=== PATIENT | male | born 1955 | race Caucasian/White ===

== ENCOUNTER → 2017-07-16 08:36 | Outpatient (CLI) | payer BC, SELFPAY ==
[2017-07-16 10:50] LABS: Hemoglobin A1c 7.9 % (4.2-6.3)
[2017-07-16 11:03] LABS: ALB/GLOB Ratio 1.1 RATIO (0.9-2.4); AST(SGOT) 18 U/L (15-37); Alanine Aminotransfer ALT/SGPT 36 U/L (16-61); Albumin, Serum 3.5 g/dL (3.2-5.0); Alkaline Phosphatase 82 U/L (45-117); Anion Gap 10 (5-15); BUN 15 mg/dL (7-18); BUN/Creat Ratio 14.6 RATIO (10-20); Calcium,Total 8.3 mg/dL (8.5-10.1); Chloride 103 mmol/L (98-107); Cholesterol 153 mg/dL (200); Creatinine, Serum 1.03 mg/dL (0.70-1.30); EST Glomerular Filtration Rate 78 mL/min (>60); Est Glom Filt Rate - Afr Amer 94 mL/min (>60); Globulin 3.2 g/dL (2.2-4.2); Glucose 140 mg/dL (74-106); High Density Lipoprotein 45 mg/dL; Potassium 4.6 mmol/L (3.5-5.1); Protein, Total 6.7 g/dL (6.4-8.2); Sodium Level 136 mmol/L (136-145); Thyroid Stim Hormone (TSH) 1.17 uIU/mL (0.358-3.74); Triglycerides 97 mg/dL; Very Low Density Lipoprotein 19 mg/dL (5-40)
== END ==
PROVIDERS: Family Provider Family Medicine; PCP Family Medicine; Visit Provider Family Medicine
DX: E11.9 Type 2 diabetes mellitus without complications (principal); E78.00 Pure hypercholesterolemia, unspecified
CPT/HCPCS: 36415; 80053; 80061; 83036; 84443

== ENCOUNTER → 2018-01-05 07:04 | Outpatient (CLI) | payer BC, SELFPAY ==
[2018-01-05 08:26] LABS: AST(SGOT) 16 U/L (15-37); Alanine Aminotransfer ALT/SGPT 39 U/L (16-61); Albumin, Serum 3.4 g/dL (3.2-5.0); Alkaline Phosphatase 87 U/L (45-117); Anion Gap 6 (5-15); BUN 14 mg/dL (7-18); BUN/Creat Ratio 14.6 RATIO (10-20); Calcium,Total 8.5 mg/dL (8.5-10.1); Chloride 106 mmol/L (98-107); Cholesterol 164 mg/dL (200); Creatinine, Serum 0.96 mg/dL (0.70-1.30); EST Glomerular Filtration Rate 84 mL/min (>60); Est Glom Filt Rate - Afr Amer 101 mL/min (>60); Globulin 3.3 g/dL (2.2-4.2); Glucose 177 mg/dL (74-106); High Density Lipoprotein 47 mg/dL; Potassium 4.7 mmol/L (3.5-5.1); Protein, Total 6.7 g/dL (6.4-8.2); Sodium Level 140 mmol/L (136-145); Triglycerides 95 mg/dL; Very Low Density Lipoprotein 19 mg/dL (5-40)
== END ==
PROVIDERS: Family Provider Family Medicine; PCP Family Medicine; Referring Provider Family Medicine; Visit Provider Family Medicine
DX: E11.9 Type 2 diabetes mellitus without complications (principal)
CPT/HCPCS: 36415; 80053; 80061

== ENCOUNTER → 2018-08-12 | Outpatient (CLI) | payer BC, SELFPAY ==
[2018-08-12 11:08] LABS: ALB/GLOB Ratio 1.2 RATIO (0.9-2.4); AST(SGOT) 21 U/L (15-37); Alanine Aminotransfer ALT/SGPT 35 U/L (16-61); Albumin, Serum 3.5 g/dL (3.2-5.0); Alkaline Phosphatase 96 U/L (45-117); Anion Gap 12 (5-15); BUN 10 mg/dL (7-18); BUN/Creat Ratio 10.1 RATIO (10-20); Calcium,Total 8.7 mg/dL (8.5-10.1); Chloride 104 mmol/L (98-107); Cholesterol 133 mg/dL (200); Creatinine, Serum 0.99 mg/dL (0.70-1.30); EST Glomerular Filtration Rate 81 mL/min (>60); Est Glom Filt Rate - Afr Amer 98 mL/min (>60); Glucose 147 mg/dL (74-106); High Density Lipoprotein 48 mg/dL; Protein, Total 6.5 g/dL (6.4-8.2); Sodium Level 139 mmol/L (136-145); Thyroid Stim Hormone (TSH) 1.01 uIU/mL (0.358-3.74); Triglycerides 71 mg/dL; Very Low Density Lipoprotein 14 mg/dL (5-40)
== END | disposition home or self-care (01) ==
LOC: MFPLAB 08:55
PROVIDERS: Family Provider Family Medicine; PCP Family Medicine; Referring Provider Family Medicine; Visit Provider Family Medicine
DX: E11.9 Type 2 diabetes mellitus without complications (principal)
CPT/HCPCS: 36415; 80053; 80061; 84403; 84443

== ENCOUNTER → 2019-09-01 10:28 | Outpatient (CLI) | payer MEDICARE, SELFPAY ==
[2016-08-18 07:27] VITALS: BMI 28.7
[2019-09-01 13:21] LABS: Vitamin D,25 Hydroxy 68.9 ng/mL
[2019-09-01 13:39] LABS: ALB/GLOB Ratio 1.1 RATIO (0.9-2.4); AST(SGOT) 19 U/L (15-37); Alanine Aminotransfer ALT/SGPT 31 U/L (16-61); Albumin, Serum 3.6 g/dL (3.2-5.0); Alkaline Phosphatase 75 U/L (45-117); Anion Gap 8 (5-15); BUN 17 mg/dL (7-18); BUN/Creat Ratio 15.5 RATIO (10-20); Calcium,Total 8.8 mg/dL (8.5-10.1); Chloride 98 mmol/L (98-107); EST Glomerular Filtration Rate 71 mL/min (>60); Est Glom Filt Rate - Afr Amer 86 mL/min (>60); Globulin 3.3 g/dL (2.2-4.2); Glucose 139 mg/dL (74-106); PSA,Total - Annual Screen 2.07 ng/mL (0.00-4.00); Potassium 4.7 mmol/L (3.5-5.1); Protein, Total 6.9 g/dL (6.4-8.2); Sodium Level 133 mmol/L (136-145)
== END ==
PROVIDERS: PCP Family Medicine; Visit Provider Family Medicine
DX: E11.9 Type 2 diabetes mellitus without complications (principal); E55.9 Vitamin D deficiency, unspecified; Z12.5 Encounter for screening for malignant neoplasm of prostate
CPT/HCPCS: 36415; 80053; 82306; 84153; G0103

== ENCOUNTER → 2020-12-13 09:45 | Outpatient (CLI) | payer OTHER, SELFPAY ==
[2020-12-13 13:01] LABS: AST(SGOT) 22 U/L (15-37); Alanine Aminotransfer ALT/SGPT 33 U/L (16-61); Albumin, Serum 3.5 g/dL (3.2-5.0); Alkaline Phosphatase 69 U/L (45-117); Anion Gap 10 (5-15); BUN 8 mg/dL (7-18); BUN/Creat Ratio 8.4 RATIO (10-20); Calcium,Total 8.6 mg/dL (8.5-10.1); Chloride 105 mmol/L (98-107); Creatinine, Serum 0.96 mg/dL (0.70-1.30); EST Glomerular Filtration Rate 83 mL/min (>60); Est Glom Filt Rate - Afr Amer 101 mL/min (>60); Globulin 3.4 g/dL (2.2-4.2); Glucose 127 mg/dL (74-106); PSA,Total - Annual Screen 2.02 ng/mL (0.00-4.00); Potassium 4.6 mmol/L (3.5-5.1); Protein, Total 6.9 g/dL (6.4-8.2); Sodium Level 140 mmol/L (136-145); Thyroid Stim Hormone (TSH) 0.91 uIU/mL (0.358-3.74)
== END ==
PROVIDERS: PCP Family Medicine; Visit Provider Family Medicine
DX: E11.65 Type 2 diabetes mellitus with hyperglycemia (principal); Z12.5 Encounter for screening for malignant neoplasm of prostate
CPT/HCPCS: 36415; 80053; 84153; 84403; 84443; G0103

== ENCOUNTER 2022-02-22 08:46 | Outpatient (CLI) | payer BC, SELFPAY ==
[2022-02-22 10:58] LABS: Vitamin B12 > 2000 pg/mL (211-911)
[2022-02-22 11:04] LABS: ALB/GLOB Ratio 1.2 RATIO (0.9-2.4); AST(SGOT) 17 U/L (15-37); Alanine Aminotransfer ALT/SGPT 24 U/L (16-61); Albumin, Serum 3.5 g/dL (3.2-5.0); Alkaline Phosphatase 84 U/L (45-117); Anion Gap 6 (5-15); BUN 13 mg/dL (7-18); BUN/Creat Ratio 15.4 RATIO (10-20); Calcium,Total 8.8 mg/dL (8.5-10.1); Chloride 106 mmol/L (98-107); Cholesterol 149 mg/dL (200); Creatinine, Serum 0.85 mg/dL (0.70-1.30); EST Glomerular Filtration Rate 96 mL/min (>60); Est Glom Filt Rate - Afr Amer 116 mL/min (>60); Globulin 2.9 g/dL (2.2-4.2); Glucose 165 mg/dL (74-106); High Density Lipoprotein 58 mg/dL; Potassium 4.6 mmol/L (3.5-5.1); Protein, Total 6.4 g/dL (6.4-8.2); Sodium Level 139 mmol/L (136-145); Thyroid Stim Hormone (TSH) 1.11 uIU/mL (0.358-3.74); Triglycerides 59 mg/dL; Very Low Density Lipoprotein 12 mg/dL (5-40)
== END 2022-02-22 23:59 | disposition home or self-care (01) ==
LOC: MFPLAB 08:48
PROVIDERS: PCP Family Medicine; Referring Provider Family Medicine; Visit Provider Family Medicine
DX: E11.59 Type 2 diabetes mellitus with other circulatory complications (principal); E11.69 Type 2 diabetes mellitus with other specified complication; E78.5 Hyperlipidemia, unspecified; E53.8 Deficiency of other specified B group vitamins
CPT/HCPCS: 36415; 80053; 80061; 82607; 84403; 84443

== ENCOUNTER → 2022-09-28 | Outpatient (CLI) | payer BC, SELFPAY ==
[2022-09-28 10:29] LABS: Vitamin B12 1558 pg/mL (211-911); Vitamin D,25 Hydroxy 43.6 ng/mL
[2022-09-28 10:48] LABS: ALB/GLOB Ratio 1.2 RATIO (0.9-2.4); AST(SGOT) 20 U/L (15-37); Alanine Aminotransfer ALT/SGPT 24 U/L (16-61); Albumin, Serum 3.5 g/dL (3.2-5.0); Alkaline Phosphatase 70 U/L (45-117); Anion Gap 6 (5-15); BUN 15 mg/dL (7-18); BUN/Creat Ratio 15.2 RATIO (10-20); Calcium,Total 8.6 mg/dL (8.5-10.1); Chloride 108 mmol/L (98-107); Cholesterol 175 mg/dL (200); Creatinine, Serum 0.99 mg/dL (0.70-1.30); EST Glomerular Filtration Rate 80 mL/min (>60); Est Glom Filt Rate - Afr Amer 97 mL/min (>60); Glucose 143 mg/dL (74-106); High Density Lipoprotein 66 mg/dL; PSA,Total - Annual Screen 2.51 ng/mL (0.00-4.00); Potassium 4.2 mmol/L (3.5-5.1); Protein, Total 6.5 g/dL (6.4-8.2); Sodium Level 140 mmol/L (136-145); Thyroid Stim Hormone (TSH) 1.19 uIU/mL (0.358-3.74); Triglycerides 39 mg/dL; Very Low Density Lipoprotein 8 mg/dL (5-40)
== END | disposition home or self-care (01) ==
PROVIDERS: PCP Family Medicine; Visit Provider Family Medicine
DX: E11.9 Type 2 diabetes mellitus without complications (principal); Z12.5 Encounter for screening for malignant neoplasm of prostate; E53.8 Deficiency of other specified B group vitamins; E55.9 Vitamin D deficiency, unspecified
CPT/HCPCS: 36415; 80053; 80061; 82306; 82607; 84153; 84443; G0103

== ENCOUNTER → 2022-12-23 | Outpatient (CLI) | payer BC, SELFPAY ==
[2022-12-23 08:36] LABS: Cholesterol 164 mg/dL (200); High Density Lipoprotein 71 mg/dL; Triglycerides 41 mg/dL; Very Low Density Lipoprotein 8 mg/dL (5-40)
[2022-12-25 12:05] LABS: Vitamin B12 938 pg/mL (211-911)
== END | disposition home or self-care (01) ==
LOC: LAB 07:02
PROVIDERS: PCP Family Medicine; Referring Provider Family Medicine; Visit Provider Family Medicine
DX: E11.69 Type 2 diabetes mellitus with other specified complication (principal); R74.8 Abnormal levels of other serum enzymes
CPT/HCPCS: 36415; 80061; 82607

== ENCOUNTER → 2023-10-22 | Outpatient (CLI) | payer BC, SELFPAY ==
[2023-10-22 18:47] LABS: ALB/GLOB Ratio 1.2 RATIO (0.9-2.4); AST(SGOT) 22 U/L (15-37); Alanine Aminotransfer ALT/SGPT 25 U/L (16-61); Albumin, Serum 3.8 g/dL (3.2-5.0); Alkaline Phosphatase 81 U/L (45-117); Anion Gap 7 (5-15); BUN 15 mg/dL (7-18); BUN/Creat Ratio 15.2 RATIO (10-20); Calcium,Total 9.3 mg/dL (8.5-10.1); Chloride 103 mmol/L (98-107); Cholesterol 209 mg/dL (200); Creatinine, Serum 0.99 mg/dL (0.70-1.30); EST Glomerular Filtration Rate 80 mL/min (>60); Est Glom Filt Rate - Afr Amer 97 mL/min (>60); Globulin 3.3 g/dL (2.2-4.2); Glucose 87 mg/dL (74-106); High Density Lipoprotein 73 mg/dL; Protein, Total 7.1 g/dL (6.4-8.2); Sodium Level 137 mmol/L (136-145); Triglycerides 38 mg/dL; Very Low Density Lipoprotein 8 mg/dL (5-40)
[2023-10-22 18:48] LABS: Vitamin B12 584 pg/mL (211-911)
[2023-10-22 18:57] LABS: Hemoglobin A1c 7.3 % (3.8-5.6)
[2023-10-22 22:59] LABS: Microalbumin,Random Urine < 5.0 mg/L (NO RANGE EST.)
== END | disposition home or self-care (01) ==
LOC: MTLAB 14:22
PROVIDERS: PCP Family Medicine; Referring Provider Family Medicine; Visit Provider Family Medicine
DX: E11.65 Type 2 diabetes mellitus with hyperglycemia (principal); E78.5 Hyperlipidemia, unspecified; E53.8 Deficiency of other specified B group vitamins; Z12.5 Encounter for screening for malignant neoplasm of prostate
CPT/HCPCS: 36415; 80053; 80061; 82043; 82570; 82607; 83036; 84153; 84403; G0103

== ENCOUNTER → 2024-04-23 | Outpatient (CLI) | payer BC, SELFPAY ==
[2024-04-23 16:13] LABS: Microalbumin,Random Urine < 12.0 mg/L (NO RANGE EST.)
== END | disposition home or self-care (01) ==
LOC: LABSPEC 10:36
PROVIDERS: PCP Family Medicine; Referring Provider Family Medicine; Visit Provider Family Medicine
DX: Z00.00 Encounter for general adult medical examination without abnormal findings (principal)
CPT/HCPCS: 82043; 82570

== ENCOUNTER → 2025-01-21 | Outpatient (CLI) | payer BC, SELFPAY ==
--- OUTSIDE RECORDS SUMMARY | 2025-01-21 08:38 | XMS RPT_ITS | CCD ---
Author Organization [facility] Care Team Providers Care Double Back Operator Name Role Phone Signs , Catrachita Hart Unavailable AROLDO Claire RN, Saima Thompson Unavailable Unavailabl e Jimmy YOUTH LIAISON OFFICER, Mary Carmen L Unavailable Unavailable Jimmy YOUTH LIAISON OFFICER, Mary Carmen L Unavailable Unavailable Jimmy YOUTH LIAISON OFFICER, Mary Carmen L Unavailable Unavailable Jimmy YOUTH LIAISON OFFICER, Mary Carmen L Unavailable Unavailable Jimmy YOUTH LIAISON OFFICER, Mary Carmen L Unavailable Unavailable Jimmy YOUTH LIAISON OFFICER, Amry Carmen L Unavailable Unavailable Ki LEE, Loc Modi Unavailable AROLDO Claire RN, Saima Thompson Unavailable UnavailKristen Chaney Unavailable [phone] Adalgisa Spencer Unavailable Unavailable Ms. Adalgisa Spencer Attending Dr. Kristen Dunaway [facility] Corinne vailable KRISTEN GALINDO Primary Care Unavail able ADALGISA SPENCER Attending Unavailable Dr. Kristen Galindo MD Primary Care Provider Dr. Kristen Galindo MD Attending Provider Dr. Kristen Galindo MD Referring Provider [phone] Kristen Galindo Referring Unavailable Kristen Galindo Attending Unavailable Kristen Galindo Primary Care Unavailable Kristen Galindo Referring Unavailable Kristen Galindo Attending Unavailable Kristen Galindo Primary Care Unavailable Allergies Allergy Classification Reported Allergen(s) Allergy Type Date of Onset Reaction(s) Facility (11 sources) codeine drug allergy [facility] Work Phone: (11 sources) HYDROCODONE BITARTRATE drug allergy 7 [facility] Work Phone: (6 sources) Codeine; Translations: [CODEINE] Drug Allergy 7 Hives, Vomiting [facility] (4 sources) HYDROcodone Drug Allergy 7 Vomiting [facility] (1 source) Codeine Drug Allergy 7 [facility] (1 source) HYDROcodone Drug Allergy 7 [facility] Medications Current Medications Medication Drug Class(es) Dates Sig (Normalized) Sig (Original) Cholecalciferol (1 source) Vitamin D Vitamin D3 Quantity: 0 Refills: 0 Ordered: 19-Dec-2021 Suzi Payne Generic Substitution Allowed glimepiride 2 mg oral tablet (1 source) Sulfonylurea take 1 tablet by mouth once daily glimepiride 2 mg oral tablet ; 1 tab(s) orally once a day Quantity: 0 Refills: 0 Ordered: 19-Dec-2021 Suzi Payne Generic Substitution Allowed lisinopril 20 mg oral tablet (16 sources) Angiotensin Converting Enzyme Inhibitor Start: 06-12-2016 take 1 tablet by mouth once daily Lisinopril (Zestril) 20 MG tablet Active 20 mg PO DAILY June 12, 2016 12:00am lovastatin 40 mg oral tablet (15 sources) HMG-CoA Reductase Inhibitor Start: 06-12-2016 take 1 tablet by mouth once daily Lovastatin (Mevacor) 40 MG tablet Active 40 mg PO DAILY June 12, 2016 12:00am metFORMIN hydrochloride 1000 mg oral tablet (16 sources) Biguanide Start: 06-12-2016 take 1 tablet by mouth twice daily at mealtime Metformin 1,000 MG tablet Active 1000 mg PO TWICE DAILY WITH MEALS June 12, 2016 12:00am pioglitazone 45 mg oral tablet (16 sources) Peroxisome Proliferator Receptor alpha Agonist, Peroxisome Proliferator Receptor gamma Agonist, Thiazolidinedione Start: 06-12-2016 take 1 tablet by mouth once daily Pioglitazone 45 MG tablet Active 45 mg PO DAILY June 12, 2016 12:00am predniSONE 10 mg oral tablet (1 source) Start: 12-19-2021 End: 12-24-2021 take 6 tablets by mouth once daily at mealtime, then take 1 tablet by mouth once daily, then take 1 tablet by mouth once daily, then take 1 tablet by mouth once daily, then take 1 tablet by mouth once daily, then take 1 tablet by mouth once daily predniSONE 10 mg oral tablet ; 6 tab(s) orally once a day x 1 days5 tab(s) orally once a day x 1 days4 tab(s) orally once a day x 1 days3 tab(s) orally once a day x 1 days2 tab(s) orally once a day x 1 days1 tab(s) orally once a day x 1 days Quantity: 21 Refills: 0 Ordered: 19-Dec-2021 Adalgisa Spencer Start: 19-Dec-2021 End: 24-Dec-2021 Generic Substitution Allowed Comments: It is very important that you take or use this exactly as directed. Do not skip doses or discontinue unless directed by your doctor.Obtain medical advice before taking any non-prescription drugs as some may affect the action of this medication.Take with food or milk. Comment on above: It is very important that you take or use this exactly as directed. Do not skip doses or discontinue unless directed by your doctor.Obtain medical advice before taking any non-prescription drugs as some may affect the action of this medication.Take with food or milk. SITagliptin 100 mg oral tablet (15 sources) Dipeptidyl Peptidase 4 Inhibitor Start: 06-12-2016 take 1 tablet by mouth once daily Sitagliptin Phosphate (Januvia) 100 MG tablet Active 100 mg PO DAILY June 12, 2016 12:00am triamcinolone acetonide 5 mg/ml topical cream (1 source) Corticosteroid Start: 12-19-2021 triamcinolone 0.5% topical cream ; Apply topically to affected area 3 times a day Quantity: 60 Refills: 0 Ordered: 19-Dec-2021 Adalgisa Spencer Start: 19-Dec-2021 Generic Substitution Allowed Comments: For external use only. Comment on above: For external use onl y. vitamin B12 (1 source) Vitamin B12 Vitamin B-12 Quantity: 0 Refills: 0 Ordered: 19-Dec-2021 Suzi Payne Generic Substitution Allowed Completed/Discontinued Medications Medication Drug Class(es) Dates Sig (Normalized) Sig (Original) cefTRIAXone 100 mg/ml injectable solution (15 sources) Cephalosporin Antibacterial End: 07-31-2016 CEFTRIAXONE SODIUM 2 GM SOLR bid CEFTRIAXONE SODIUM [id number] Mary Carmen Marquez LPN 1 ml heparin sodium, porcine 1 unt/ml prefilled syringe (5 sources) Unfractionated Heparin, Anti-coagulant End: 07-31-2016 HEPARIN LOCK FLUSH 1 UNIT/ML SOLN HEPARIN LOCK FLUSH [id number] Saima Claire RN RN 1 ml heparin sodium, porcine 1 unt/ml prefilled syringe (8 sources) Unfractionated Heparin, Anti-coagulant End: 07-31-2016 HEPARIN LOCK FLUSH 1 UNIT/ML SOLN HEPARIN LOCK FLUSH [id number] Saima Claire RN RN ibuprofen 800 mg oral tablet (11 sources) Nonsteroidal Anti-inflammatory Drug IBUPROFEN 800 MG TABS three times a day prn IBUPROFEN [id number] Mary Carmen Marquez LPN levoFLOXacin 500 mg oral tablet (14 sources) Quinolone Antimicrobial Start: 06-27-2016 End: 07-31-2016 take 1 tablet by mouth once daily LEVAQUIN 500 MG TABS 1 po qd LEVOFLOXACIN [id number] Mary Carmen Marquez LPN polysaccharide iron complex 150 mg oral capsule (10 sources) Start: 06-27-2016 take 1 capsule by mouth once daily FERREX 150 150 MG CAPS 1 po qd POLYSACCHARIDE IRON COMPLEX [id number] Catrachita J Signs Start: 06-27-2016 take 1 capsule by mo [facility] once daily FERREX 150 150 MG CAPS 1 po qd POLYSACCHARIDE IRON COMPLEX [id number] Catrachita J Signs Problems Active Problems Problem Classification Problem Date Documented Date Episodic/Chronic Allergic reactions (1 source) Unspecified contact dermatitis due to plants, except food; Translations: [Unspecified contact dermatitis due to plants, except food] Onset: 12-19-2021 Episodic Bacterial infection; unspecified site (4 sources) Bacteremia caused by Gram-positive bacteria; Translations: [Bacteremia] 06-21-2016 Episodic Diabetes mellitus with complications (1 source) Type 2 diabetes mellitus with hyperglycemia; Translations: [Type 2 diabetes mellitus with hyperglycemia] Onset: 11-06-2023 Chronic Influenza (2 sources) Influenza due to other identified influenza virus with other respiratory manifestations; Translations: [Influenza due to other identified influenza virus with other respiratory manifestations] Onset: 04-10-2023 Episodic Other nutritional; endocrine; and metabolic disorders (9 sources) Overweight; Translations: [Overweight] Onset: 07-05-2016 07-05-2016 Chronic Other skin disorders (1 source) Rash and other nonspecific skin eruption; Translations: [Rash and other nonspecific skin eruption] Onset: 12-19-2021 Episodic Other upper respiratory infections (2 sources) Acute upper respiratory infection, unspecified; Translations: [Acute upper respiratory infection, unspecified] Onset: 04-10-2023 Episodic Septicemia (20 sources) Bacteremia; Translations: [Septicemia due to Staphylococcus aureus] Onset: 06-27-2016 06-27-2016 Episodic Unclassified (1 source) No current problems or disability 06-24-2016 Unclassified (3 sources) Procedure carried out on subject; Translations: [Encounter for issue of repeat prescription] Onset: 06-27-2016 06-27-2016 Unclassified (2 sources) RASH 12-19-2021 Comment on above: RASH Past or Other Problems Problem Classification Problem Date Documented Da te Episodic/Chronic Administrative/social admission (7 sources) Encounter for issue of repeat prescription; Translations: [Encounter for issue of repeat prescription] Onset: 06-27-2016 06-27-2016 Episodic Deficiency and other anemia (10 sources) Anemia; Translations: [Anemia, unspecified] Onset: 06-27-2016 06-27-2016 Episodic Noninfectious gastroenteritis (10 sources) Colitis; Translations: [Noninfective gastroenteritis and colitis, unspecified] Onset: 06-27-2016 06-27-2016 Episodic Other gastrointestinal disorders (10 sources) Diarrhea; Translations: [Diarrhea, unspecified] Onset: 06-27-2016 06-27-2016 Episodic Results Test Name Value Interpretation Reference Range Facility Microalb:Creat Ratio,Random URon 09-22-2024 MALB:CREAT UNABLE TO CALCULATE Normal <30 mg/g CRE [facility] Comment on above: Result Comment: UNAB LE TO CALCULATE AMENDED REPORT 09/22/242003 MALB:CREAT previously reported as: mg/g CRE UNABLE TO CALCULATE Performed By: #### L 502.0250 #### [facility] [address] [place], [address] Albumin DL <= 20 mg/L (U) [M ass/Vol]Ordered By: Kristen Galindo on 04-23-2024 Urine Random Microalbumin < 12.0 mg/L NO RANGE EST. [facility] Creatinine Unsp time (U) [Ma ss/Vol]Ordered By: Kristen Galindo on 04-23-2024 Creatinine (U) [Mass/Vol] 28.10 mg/dL NO RANGE EST. [facility] Microalbumin/creat ratio urO rdered By: Kristen Galindo on 04-23-2024 Urine Microalbumin/Creatinin e Ratio See comment [facility] Comment on above: UNABLE TO CALCULATE Comprehensive Metabolic Prof ilon 10-22-2023 Albumin [Mass/Vol] 3.8 g/dL Normal 3.2-5.0 [facility] Comment on above: Order Comment: Order Date: 04/17/23 Order Info: [id number] - LIPID Performed By: #### L 509.3000, L500.4050, L501.9910, L503.0105 #### [facility] [address] [place], [address] Albumin/Globulin [Mass ratio] 1.2 {ratio} Normal 0.9-2.4 [facility] Comment on above: Order Comment: Order Date: 04/17/23 Order Info: [id number] - LIPID Performed By: #### L 509.3000, L500.4050, L501.9910, L503.0105 #### [facility] [address] [place], [address] ALK P 81 U/L Normal 45-117 [facility] Comment on above: Order Comment: Order Date: 04/17/23 Order Info: [id number] - LIPID Performed By: #### L 509.3000, L500.4050, L501.9910, L503.0105 #### [facility] [address] [place], [address] ALT [Catalytic activity/Vol] 25 U/L Normal 16-61 [facility] Comment on above: Order Comment: Order Date: 04/17/23 Order Info: [id number] - LIPID Performed By: #### L 509.3000, L500.4050, L501.9910, L503.0105 #### [facility] [address] [place], [address] AST [Catalytic activity/Vol] 22 U/L Normal 15-37 [facility] Comment on above: Order Comment: Order Date: 04/17/23 Order Info: [id number] - LIPID Performed By: #### L 509.3000, L500.4050, L501.9910, L503.0105 #### [facility] [address] [place], [address] Bilirubin [Mass/Vol] 1.10 mg/dL High 0.20-1.00 [facility] Comment on above: Order Comment: Order Date: 04/17/23 Order Info: [id number] - LIPID Result Comment: For patients on eltrombopag therapy, use of Dimension Herscher TBIL is not recommended. Performed By: #### L 509.3000, L500.4050, L501.9910, L503.0105 #### [facility] [address] [place], [address] BUN/CRE 15.2 RATIO Normal 10-20 [facility] Comment on above: Order Comment: Order Date: 04/17/23 Order Info: [id number] - LIPID Performed By: #### L 509.3000, L500.4050, L501.9910, L503.0105 #### [facility] [address] [place], [address] CA,Total 9.3 mg/dL Normal 8.5-10.1 [facility] Comment on above: Order Comment: Order Date: 04/17/23 Order Info: [id number] - LIPID Performed By: #### L 509.3000, L500.4050, L501.9910, L503.0105 #### [facility] [address] [place], [address] Chloride [Moles/Vol] 103 mmol/L Normal 98-107 [facility] Comment on above: Order Comment: Order Date: 04/17/23 Order Info: [id number] - LIPID Performed By: #### L 509.3000, L500.4050, L501.9910, L503.0105 #### [facility] [address] [place], [address] CO2 [Moles/Vol] 27.0 mmol/L Normal 21.0-32.0 [facility] Comment on above: Order Comment: Order Date: 04/17/23 Order Info: [id number] - LIPID Performed By: #### L 509.3000, L500.4050, L501.9910, L503.0105 #### [facility] [address] [place], [address] Creatinine [Mass/Vol] 0.99 mg/dL Normal 0.70-1.30 [facility] Comment on above: Order Comment: Order Date: 04/17/23 Order Info: [id number] - LIPID Result Comment: The validity of the calculated GFR GFRAA in patients over 70 years has not been determined. Clinical correlation is essential. Performed By: #### L 509.3000, L500.4050, L501.9910, L503.0105 #### [facility] [address] [place], [address] EST GFR - AA 97 mL/min Normal >60 [facility] Comment on above: Order Comment: Order Date: 04/17/23 Order Info: [id number] - LIPID Result Comment: Afri can [place] GFR Calc Performed By: #### L 509.3000, L500.4050, L501.9910, L503.0105 #### [facility] [address] [place], [address] GAP 7 Normal 5-15 [facility] Comment on above: Order Comment: Order Date: 04/17/23 Order Info: [id number] - LIPID Performed By: #### L 509.3000, L500.4050, L501.9910, L503.0105 #### [facility] [address] [place], [address] GFR/1.73 sq M.predicted among non-blacks MDRD (S/P/Bld) [Vol rate/Area] 80 mL/min/{1.73_m2} Normal >60 [facility] Comment on above: Order Comment: Order Date: 04/17/23 Order Info: [id number] - LIPID Result Comment: Non- GFR Calc Performed By: #### L 509.3000, L500.4050, L501.9910, L503.0105 #### [facility] [address] [place], [address] Globulin (S) [Mass/Vol] 3.3 g/dL Normal 2.2-4.2 [facility] Comment on above: Order Comment: Order Date: 04/17/23 Order Info: [id number] - LIPID Performed By: #### L 509.3000, L500.4050, L501.9910, L503.0105 #### [facility] [address] [place], [address] Glucose [Mass/Vol] 87 mg/dL Normal 74-106 [facility] Comment on above: Order Comment: Order Date: 04/17/23 Order Info: [id number] - LIPID Performed By: #### L 509.3000, L500.4050, L501.9910, L503.0105 #### [facility] [address] [place], [address] Potassium [Moles/Vol] 4.0 mmol/L Normal 3.5-5.1 [facility] Comment on above: Order Comment: Order Date: 04/17/23 Order Info: [id number] - LIPID Performed By: #### L 509.3000, L500.4050, L501.9910, L503.0105 #### [facility] [address] [place], [address] Sodium [Moles/Vol] 137 mmol/L Normal 136-145 [facility] Comment on above: Order Comment: Order Date: 04/17/23 Order Info: [id number] - LIPID Performed By: #### L 509.3000, L500.4050, L501.9910, L503.0105 #### [facility] [address] [place], [address] T PROT 7.1 g/dL Normal 6.4-8.2 [facility] Comment on above: Order Comment: Order Date: 04/17/23 Order Info: [id number] - LIPID Performed By: #### L 509.3000, L500.4050, L501.9910, L503.0105 #### [facility] [address] [place], [address] Urea nitrogen [Mass/Vol] 15 mg/dL Normal 7-18 [facility] Comment on above: Order Comment: Order Date: 04/17/23 Order Info: [id number] - LIPID Performed By: #### L 509.3000, L500.4050, L501.9910, L503.0105 #### [facility] [address] [place], [address] Hemoglobin A1con 10-22-2023 HbA1c (Bld) [Mass fraction] 7.3 % High 3.8-5.6 [facility] Comment on above: Order Comment: Order Date: 04/17/23 Order Info: [id number] - A1C Result Comment: Norm al < 5.7 % Prediabetic 5.7 - 6.4 % Diabetic >or= 6.5 % Please note range changes. Performed By: #### L 501.9985, L502.0250, L500.4100 #### [facility] [address] [place], [address] Lipid Profileon 10-22-2023 Cholesterol [Mass/Vol] 209 mg/dL High 200 [facility] Comment on above: Order Comment: Order Date: 04/17/23 Order Info: [id number] - LIPID Result Comment: <200 mg/dL Desirable 200-240 mg/dL Borderline >240 mg/dL High Risk Performed By: #### L 501.9985, L502.0250, L500.4100 #### [facility] [address] [place], [address] Cholesterol in HDL [Mass/Vol] 73 mg/dL Normal [facility] Comment on above: Order Comment: Order Date: 04/17/23 Order Info: [id number] - LIPID Result Comment: The drugs N-Acetylcysteine and Metamizole may falsely depress this assay. Reference Range HDL <40 mg/dL Low HDL Cholesterol HDL >or= 60 mg/dL High HDL Cholesterol Performed By: #### L 501.9985, L502.0250, L500.4100 #### [facility] [address] [place], [address] Cholesterol in LDL [Mass/Vol] 128 mg/dL Normal 0-130 [facility] Comment on above: Order Comment: Order Date: 04/17/23 Order Info: [id number] - LIPID Performed By: #### L 501.9985, L502.0250, L500.4100 #### [facility] [address] [place], [address] Cholesterol in VLDL [Mass/Vol] 8 mg/dL Normal 5-40 [facility] Comment on above: Order Comment: Order Date: 04/17/23 Order Info: [id number] - LIPID Performed By: #### L 501.9985, L502.0250, L500.4100 #### [facility] [address] [place], [address] Triglyceride [Mass/Vol] 38 mg/dL Normal [facility] Comment on above: Order Comment: Order Date: 04/17/23 Order Info: [id number] - LIPID Result Comment: The drugs N-Acetylcysteine and Metamizole may falsely depress this assay. Serum Triglycerides Reference Interval Normal <150 mg/dL Borderline high 150 - 199 mg/dL High 200 - 499 mg/dL Very High > or = 500 mg/dL Performed By: #### L 501.9985, L502.0250, L500.4100 #### [facility] [address] [place], [address] Microalb:Creat Ratio,Random URon 10-22-2023 MALB:CRE TNP Normal <30 mg/g CRE [facility] Comment on above: Order Comment: Order Date: 04/17/23 Order Info: [id number] - MIACRE Performed By: #### L 501.9985, L502.0250, L500.4100 #### [facility] [address] [place], [address] MICROALBUMIN,UR < 5.0 Normal NO RANGE EST. [facility] Comment on above: Order Comment: Order Date: 04/17/23 Order Info: [id number] - MIACRE Performed By: #### L 501.9985, L502.0250, L500.4100 #### [facility] [address] [place], [address] PSA,Total - Annual Screenon 10-22-2023 PSA,TOT SCREEN 2.20 ng/mL Normal 0.00-4.00 [facility] Comment on above: Order Comment: Order Date: 04/17/23 Order Info: [id number] - LIPID Result Comment: This test was performed using the TPSA assay method for the [employer] chemistry system. Values obtained with different assay methods cannot be used interchangably. When changing PSA assays in the course of monitoring a patient, additional sequential testing should be carried out to confirm baseline values. Performed By: #### L 509.3000, L500.4050, L501.9910, L503.0105 #### [facility] [address] [place], [address] Testosterone, Serum Totalon 10-22-2023 Testosterone [Mass/Vol] 436.07 ng/dL Normal [facility] Comment on above: Result Comment: CENT RAL 90% REFERENCE RANGES MALE AGE <50 197.44 - 669.58 ng/dL MALE AGE > or = 50 187.72 - 684.19 ng/dL FEMALE AGE <50 8.38 - 35.01 ng/dL FEMALE AGE > or = 50 <7.00 - 35.92 ng/dL Effective as of 09/21/20 Performed By: #### L 509.3000, L500.4050, L501.9910, L503.0105 #### [facility] [address] [place], [address] Vitamin B12on 10-22-2023 Cobalamin (Vitamin B12) [Mass/Vol] 584 pg/mL Normal 211-911 [facility] Comment on above: Performed By: #### L 509.3000, L500.4050, L501.9910, L503.0105 #### [facility] [address] [place], [address] Basophil percentageOrdered B y: Jeremiah Galindo on 12-23-2022 Cholesterol [Mass/Vol] 164 mg/dL <200 [facility] Comment on above: <200 mg/dL Desirable 200-240 mg/dL Borderline >240 mg/dL High Risk Triglyceride [Mass/Vol] 41 mg/dL <199 [facility] Comment on above: The drugs N-Acetylcy steine and Metamizole may falsely depress this assay.Serum Triglycerides Reference Interval Normal <150 mg/dL Borderline high 150 - 199 mg/dL High 200 - 499 mg/dL Very High > or = 500 mg/dL Laboratory - Chemistry and C hemistry - challengeOrdered By: Jeremiah Galindo on 12-23-2022 Cobalamin (Vitamin B12) [Mass/Vol] 938 pg/mL 211-911 [facility] Serum or plasma cholesterol in HDL measurement (mass/volume)Ordered By: Jeremiah Galindo on 12-23-2022 Cholesterol in HDL [Mass/Vol] 71 mg/dL >40 [facility] Comment on above: The drugs N-Acetylcy steine and Metamizole may falsely depress this assay. Reference Range HDL <40 mg/dL Low HDL Cholesterol HDL >or= 60 mg/dL High HDL Cholesterol Serum or plasma cholesterol in VLDL measurement (mass/volume)Ordered By: Jeremiah Galindo on 12-23-2022 Cholesterol in VLDL [Mass/Vol] 8 mg/dL 5-40 [facility] Serum or plasma low density lipoprotein (LDL) cholesterol measurement (mass/volume)Ordered By: Jeremiah Galindo on 12-23-2022 Cholesterol in LDL [Mass/Vol] 85 mg/dL 0-130 [facility] Basophil percentageOrdered B y: Jeremiah Galindo on 09-28-2022 Bilirubin [Mass/Vol] 1.10 mg/dL 0.20-1.00 [facility] Comment on above: For patients on eltr ombopag therapy, use of Dimension Herscher TBIL is not recommended. Chloride [Moles/Vol] 108 mmol/L 98-107 [facility] Cholesterol [Mass/Vol] 175 mg/dL <200 [facility] Comment on above: <200 mg/dL Desirable 200-240 mg/dL Borderline >240 mg/dL High Risk Glucose [Mass/Vol] 143 mg/dL 74-106 [facility] Comment on above: Fasting Glucose resu lt greater than or equal to 126 mg/dL suggests DIABETES MELLITUS per A.D.A. criteria. Potassium [Moles/Vol] 4.2 mmol/L 3.5-5.1 [facility] Protein [Mass/Vol] 6.5 g/dL 6.4-8.2 [facility] Sodium [Moles/Vol] 140 mmol/L 136-145 [facility] Triglyceride [Mass/Vol] 39 mg/dL <199 [facility] Comment on above: The drugs N-Acetylcy steine and Metamizole may falsely depress this assay.Serum Triglycerides Reference Interval Normal <150 mg/dL Borderline high 150 - 199 mg/dL High 200 - 499 mg/dL Very High > or = 500 mg/dL Laboratory - Chemistry and C hemistry - challengeOrdered By: Jeremiah Galindo on 09-28-2022 ALP [Catalytic activity/Vol] 70 U/L 45-117 [facility] ALT [Catalytic activity/Vol] 24 U/L 16-61 [facility] CO2 [Moles/Vol] 26.0 mmol/L 21.0-32.0 [facility] Cobalamin (Vitamin B12) [Mass/Vol] 1558 pg/mL 211-911 [facility] Globulin (S) [Mass/Vol] 3.0 g/dL 2.2-4.2 [facility] Urea nitrogen/Creatinine [Mass ratio] 15.2 mg/mg 10-20 [facility] No Panel InformationOrdered By: Jeremiah Galindo on 09-28-2022 Estimated GFR (MDRD) Amer 97 mL/min >60 [facility] Comment on above: GFR Calc Estimated GFR (MDRD) Non-Af Amer 80 mL/min >60 [facility] Comment on above: Non- GFR Calc Prostate Specific Antigen Screen 2.51 ng/mL 0.00-4.00 [facility] Comment on above: This test was perfor med using the TPSA assay method for [employer] chemistry system. Values obtained with differentassay methods cannot be used interchangably.When changing PSA assays in the course of monitoring apatient, additional sequential testing should be carriedout to confirm baseline values. Thyroid Stimulating Hormone (TSH) 1.19 uIU/mL 0.358-3.74 [facility] Vitamin D 25-Hydroxy 43.6 ng/mL [facility] Comment on above: Vitamin D 25(OH) Sta tus Range Deficiency <20 ng/mL (50nmol/L) Insufficiency 20 - 30 ng/mL (50 - 75 nmol/L) Sufficiency 30 - 100 ng/mL (75 - 250 nmol/L) Toxicity >100 ng/mL (>250 nmol/L) Serum or plasma albumin dami urement (mass/volume)Ordered By: Jeremiah Galindo on 09-28-2022 Albumin [Mass/Vol] 3.5 g/dL 3.2-5.0 [facility] Serum or plasma albumin/glob ulin mass ratioOrdered By: Jeremiah Galindo on 09-28-2022 Albumin/Globulin [Mass ratio] 1.2 {ratio} 0.9-2.4 [facility] Serum or plasma calcium dami urement (mass/volume)Ordered By: Jeremiah Galindo on 09-28-2022 Calcium [Mass/Vol] 8.6 mg/dL 8.5-10.1 [facility] Serum or plasma cholesterol in HDL measurement (mass/volume)Ordered By: Jeremiah Galindo on 09-28-2022 Cholesterol in HDL [Mass/Vol] 66 mg/dL >40 [facility] Comment on above: The drugs N-Acetylcy steine and Metamizole may falsely depress this assay. Reference Range HDL <40 mg/dL Low HDL Cholesterol HDL >or= 60 mg/dL High HDL Cholesterol Serum or plasma cholesterol in VLDL measurement (mass/volume)Ordered By: Jeremiah Galindo on 09-28-2022 Cholesterol in VLDL [Mass/Vol] 8 mg/dL 5-40 [facility] Serum or plasma creatinine m easurement (mass/volume)Ordered By: Jeremiah Galindo on 09-28-2022 Creatinine [Mass/Vol] 0.99 mg/dL 0.70-1.30 [facility] Comment on above: The validity of the calculated GFR & GFRAA in patients over 70 years has not been determined. Clinical correlation is essential. Serum or plasma low density lipoprotein (LDL) cholesterol measurement (mass/volume)Ordered By: Jeremiah Galindo on 09-28-2022 Cholesterol in LDL [Mass/Vol] 101 mg/dL 0-130 [facility] Serum or plasma urea nitroge n measurement (mass/volume)Ordered By: Jeremiah Galindo on 09-28-2022 Urea nitrogen [Mass/Vol] 15 mg/dL 7-18 [facility] Thin prep Papanicolaou smear with manual screeningOrdered By: Jeremiah Galindo on 09-28-2022 Thin prep Papanicolaou smear with manual screening 20 U/L 15-37 [facility] Thin prep Papanicolaou smear with manual screening 6 5-15 [facility] Basophil percentageon 2021 Bilirubin [Mass/Vol] 1.10 mg/dL 0.20-1.00 [facility] Work Phone: Comment on above: For patients on eltr ombopag therapy, use of Dimension [place] TBIL is not recommended. Chloride [Moles/Vol] 106 mmol/L 98-107 [facility] Work Phone: Cholesterol [Mass/Vol] 149 mg/dL <200 [facility] Work Phone: Comment on above: <200 mg/dL Desirable 200-240 mg/dL Borderline >240 mg/dL High Risk Glucose [Mass/Vol] 165 mg/dL 74-106 [facility] Work Phone: Comment on above: Fasting Glucose resu lt greater than or equal to 126 mg/dL suggests DIABETES MELLITUS per A.D.A. criteria. Potassium [Moles/Vol] 4.6 mmol/L 3.5-5.1 [facility] Work Phone: Protein [Mass/Vol] 6.4 g/dL 6.4-8.2 [facility] Work Phone: Sodium [Moles/Vol] 139 mmol/L 136-145 [facility] Work Phone: Testosterone [Mass/Vol] 395.85 ng/dL [facility] Work Phone: Comment on above: CENTRAL 90% REFERENC E RANGES MALE AGE <50 197.44 - 669.58 ng/dL MALE AGE > or = 50 187.72 - 684.19 ng/dL FEMALE AGE <50 8.38 - 35.01 ng/dL FEMALE AGE > or = 50 <7.00 - 35.92 ng/dL Effective as of 09/21/20 Triglyceride [Mass/Vol] 59 mg/dL <199 [facility] Work Phone: Comment on above: The drugs N-Acetylcy steine and Metamizole may falsely depress this assay.Serum Triglycerides Reference Interval Normal <150 mg/dL Borderline high 150 - 199 mg/dL High 200 - 499 mg/dL Very High > or = 500 mg/dL Laboratory - Chemistry and C hemistry - challengeon 02-22-2022 ALP [Catalytic activity/Vol] 84 U/L 45-117 [facility] Work Phone: ALT [Catalytic activity/Vol] 24 U/L 16-61 [facility] Work Phone: CO2 [Moles/Vol] 27.0 mmol/L 21.0-32.0 [facility] Work Phone: Globulin (S) [Mass/Vol] 2.9 g/dL 2.2-4.2 [facility] Work Phone: Urea nitrogen/Creatinine [Mass ratio] 15.4 mg/mg 10-20 [facility] Work Phone: No Panel Informationon 02-22 Estimated GFR (MDRD) Amer 116 mL/min >60 [facility] Work Phone: Comment on above: GFR Calc Estimated GFR (MDRD) Non-Af Amer 96 mL/min >60 [facility] Work Phone: Comment on above: Non- GFR Calc Thyroid Stimulating Hormone (TSH) 1.11 uIU/mL 0.358-3.74 [facility] Work Phone: Vitamin B12 Level > 2000 pg/mL 211-911 [facility] Work Phone: Serum or plasma albumin dami urement (mass/volume)on 02-22-2022 Albumin [Mass/Vol] 3.5 g/dL 3.2-5.0 [facility] Work Phone: Serum or plasma albumin/glob ulin mass ratioon 02-22-2022 Albumin/Globulin [Mass ratio] 1.2 {ratio} 0.9-2.4 [facility] Work Phone: Serum or plasma calcium dami urement (mass/volume)on 02-22-2022 Calcium [Mass/Vol] 8.8 mg/dL 8.5-10.1 [facility] Work Phone: Serum or plasma cholesterol in HDL measurement (mass/volume)on 02-22-2022 Cholesterol in HDL [Mass/Vol] 58 mg/dL >40 [facility] Work Phone: Comment on above: The drugs N-Acetylcy steine and Metamizole may falsely depress this assay. Reference Range HDL <40 mg/dL Low HDL Cholesterol HDL >or= 60 mg/dL High HDL Cholesterol Serum or plasma cholesterol in VLDL measurement (mass/volume)on 02-22-2022 Cholesterol in VLDL [Mass/Vol] 12 mg/dL 5-40 [facility] Work Phone: Serum or plasma creatinine m easurement (mass/volume)on 02-22-2022 Creatinine [Mass/Vol] 0.85 mg/dL 0.70-1.30 [facility] Work Phone: Comment on above: The validity of the calculated GFR & GFRAA in patients over 70 years has not been determined. Clinical correlation is essential. Serum or plasma low density lipoprotein (LDL) cholesterol measurement (mass/volume)on 02-22-2022 Cholesterol in LDL [Mass/Vol] 79 mg/dL 0-130 [facility] Work Phone: Serum or plasma urea nitroge n measurement (mass/volume)on 02-22-2022 Urea nitrogen [Mass/Vol] 13 mg/dL 7-18 [facility] Work Phone: Thin prep Papanicolaou smear with manual screeningon 02-22-2022 Thin prep Papanicolaou smear with manual screening 17 U/L 15-37 [facility] Work Phone: Thin prep Papanicolaou smear with manual screening 6 5-15 [facility] Work Phone: Provider Note - ED v3on 10- Provider Note - ED v3 Provider Note: Chart Review: ED NOTES ED NOTES: Patient presents for evaluation of rash to bilateral arms and abdomen that has been ongoing for the past week and refractory to otc remedies. Denies fever, n/v/d, drainage from rash, body aches, difficulty breathing or swallowing or sore throat or any other associated symptoms or complaints. Has been cutting wood lately and exposure to poison kel. HISTORY OF PRESENTING ILLNESS ADDI is a 66 year old Male and was seen by me at 19-Dec-2021 14:21. Triage Information: Most recent Vital Sign Value Date PAST MEDICAL HISTORY ALLERGIES/INTOLERA NCES: Allergy Allergen: codeine Type: Drug Reaction: Hives/Urticaria HEALTH HISTORY: No documented data. OUTPATIENT MEDICATIONS: Home Medications Review Status for Reconciliation: Complete Med Status: Patient Currently Takes Medications Drug Name: Actos 45 mg oral tablet Instructions: 1 tab(s) orally once a day Drug Name: metFORMIN 1000 mg oral tablet Instructions: 1 tab(s) orally 2 times a day Drug Name: glimepiride 2 mg oral tablet Instructions: 1 tab(s) orally once a day Drug Name: lisinopril 20 mg oral tablet Instructions: 1 tab(s) orally once a day Drug Name: Vitamin D3 Instructions: null Drug Name: Vitamin B-12 Instructions: null Drug Name: predniSONE 10 mg oral tablet Instructions: 6 tab(s) orally once a day x 1 days 5 tab(s) orally once a day x 1 days 4 tab(s) orally once a day x 1 days 3 tab(s) orally once a day x 1 days 2 tab(s) orally once a day x 1 days 1 tab(s) orally once a day x 1 days Drug Name: triamcinolone 0.5% topical cream Instructions: Apply topically to affected area 3 times a day SIGNIFICANT EVENTS: No documented data. REVIEW OF SYSTEMS All other systems reviewed and are negative REVIEW OF SYSTEMS: Comments See HPI PHYSICAL EXAM CONSTITUTIONAL: Well appearing, well nourished, awake, alert, oriented to person, place, time/situation and in no apparent distress. NEUROLOGICAL: Alert and oriented, no focal deficits, no motor or sensory deficits. SKIN: Skin normal color for race, warm, dry and intact except for fine vesicular slightly erythematous rash to bilateral arms and abdomen without drainage or evidence of infection. PSYCHIATRIC: Alert and oriented to person, place, time/situation. normal mood and affect. No apparent risk to self or others. CRITICAL CARE VITAL SIGNS: Initial Vital Signs: Temperature C: 36.4 degrees C. Temperature F: 97.6 degrees F. Blood Pressure: 133 mm/Hg / 81 mm/Hg Blood Pressure Position: Heart Rate: 87 beats per minute Respiratory Rate: Pulse Oximetry: 98 %. Patient on: room air. MDM MDM/ED COURSE: Discussed Findings with: patient Data Reviewed: vital signs Treatment Plan: Rx prednisone. Patient's clinical presentation is otherwise unremarkable at this time. Patient is discharged with instructions to follow-up with primary care or seek emergency medical attention for worsening symptoms or any new concerns. DISPOSITION Diagnosis/Annotati on: ED Dx Name:Rhus dermatitis Code:L25.5 Disposition: discharged Type: home CONSULT CRITICAL CARE TIME Is this a critically ill patient: no Electronic Signatures: Adalgisa Spencer (CLOTH DOUBLING MACHINE OPERATOR-ORE FIELDER) (Signed 21-Dec-2021 16:30) Authored: ED Notes, HPI, PMH, ROS, PE, Results/Vital Signs, MDM/ED Course, Clinical Impression, Attestation, Chart Review, Scores Last Updated: 21-Dec-2021 16:30 by Adalgisa Spencer (CLOTH DOUBLING MACHINE OPERATOR-ORE FIELDER) [facility] Lab Report: Bedside Glucoseo n 08-18-2016 Glucose mass conc 173 mg/dL High 70-110 [facility] Work Phone: Lab Report: Comprehensive Id tabolic Profilon 07-31-2016 Alanine aminotransferase (ALT) 20 U/L 12-78 [facility] Work Phone: Albumin 3.6 g/dL 3.4-5.0 [facility] Work Phone: Albumin/Globulin Ratio 1 {ratio} 0.9-2.4 [facility] Work Phone: Alkaline phosphatase (ALP) 98 U/L Invalid Interpretation Code 45-117 [facility] Work Phone: ALP enzyme act/vol (Bld) 98 U/L 45-117 [facility] Work Phone: Anion gap 7 mmol/L Invalid Interpretation Code 5-15 [facility] Work Phone: Anion gap molar conc 7 mmol/L 5-15 [facility] Work Phone: Aspartate aminotransferase (AST) 14 U/L Low 15-37 [facility] Work Phone: Bilirubin (total) 0.50 mg/dL 0.20-1.00 [facility] Work Phone: BUN/Creatinine Ratio 13.9 RATIO 10-[address] [facility] Work Phone: Calcium 8.9 mg/dL 8.5-10.1 [facility] Work Phone: Chloride 106 mmol/L 98-107 [facility] Work Phone: CO2 30.0 mmol/L Invalid Interpretation Code 21.0-32.0 [facility] Work Phone: CO2 ppres (BldV) 30.0 mmol/L 21.0-32.0 [facility] [employer] Work Phone: Creatinine 0.94 mg/dL 0.70-1.30 [facility] Work Phone: eGFR (non-black) 105 mL/min/{1.73_m2} Invalid Interpretation Code >60 [facility] Work Phone: eGFR (non-black) 87 mL/min/{1.73_m2} >60 [facility] Work Phone: EST GFR - AA 105 mL/min >60 [facility] [email or web address] Work Phone: Globulin 3.7 g/dL High 2.3-3.5 [facility] Work Phone: Globulin mass conc (S) 3.7 g/dL High 2.3-3.5 [facility] [employer] Work Phone: Glucose 121 mg/dL High 70-110 [facility] Work Phone: Glucose mass conc 121 mg/dL High 70-110 [facility] [employer] Work Phone: Potassium 4.1 mmol/L 3.5-5.1 [facility] Work Phone: Protein 7.3 g/dL 6.4-8.2 [facility] Work Phone: Sodium 143 mmol/L 136-145 [facility] Work Phone: Urea nitrogen 13 mg/dL 7-18 [facility] Work Phone: Lab Report: Erythrocyte Sed Rateon 07-31-2016 Erythrocyte sedimentation rate 27 mm/h High 0-20 [facility] Work Phone: Office Visit: end of Tx for MSSA bacteremiaon 07-31-2016 Documentation of current medications (procedure) Done Invalid Interpretation Code [facility] Work Phone: Protein mass conc Done [facility] [employer] Work Phone: Replaced Document: (P) CBC W /Diff, Automatedon 07-31-2016 Basophils/100 leukocytes 0.4 % Invalid Interpretation Code 0-1 [facility] Work Phone: Basophils/100 WBC (Bld) 0.4 % 0-1 [facility] [email or web address] Work Phone: Eosinophils/100 leukocytes 3.4 % Invalid Interpretation Code 0-5 [facility] Work Phone: Eosinophils/100 WBC (Bld) 3.4 % 0-5 [facility] [email or web address] Work Phone: Erythrocyte distribution width Ratio (RBC) 44.2 fL High 35.1-43.9 [facility] [email or web address] Work Phone: Erythrocyte distribution width Ratio (RBC) 14.2 % 11.6-14.6 [facility] [email or web address] Work Phone: Erythrocytes (RBC) 4.59 10*6/uL Low 4.6-6.[address] [facility] Work Phone: Hematocrit (HCT) 39.1 % Low 40-54 [facility] Work Phone: Hematocrit Volume Fraction (Bld) 39.1 % Low 40-54 [facility] [email or web address] Work Phone: Hemoglobin (HGB) 12.6 g/dL Low 13.0-16.5 [facility] Work Phone: Immature granulocytes #/vol (Bld) 0.200 % 0.0-0.9 [facility] [email or web address] Work Phone: immature granulocytes, percentage of total cells, blood 0.200 % Invalid Interpretation Code 0.0-0.9 [facility] Work Phone: Lymphocytes 1.44 X10 3/UL Invalid Interpretation Code 0.83-4.51 [facility] Work Phone: Lymphocytes #/vol (Bld) 1.44 X10 3/UL 0.83-4.51 [facility] [email or web address] Work Phone: Lymphocytes/100 leukocytes 26.0 % Invalid Interpretation Code 19-41 [facility] Work Phone: Lymphocytes/100 WBC (Bld) 26.0 % 19-41 [facility] Work Phone: MCH 27.5 pg Invalid Interpretation Code 27.0-32.0 [facility] Work Phone: MCH Entitic mass (RBC) 27.5 pg 27.0-32.0 [facility] Work Phone: MCHC 32.2 G/GL Invalid Interpretation Code 32-36 [facility] Work Phone: MCHC mass conc (RBC) 32.2 G/GL 32-36 [facility] Work Phone: MCV 85.2 fL Invalid Interpretation Code 80-94 [facility] Work Phone: MCV Entitic volume (RBC) 85.2 fL 80-94 [facility] Work Phone: Monocytes/100 leukocytes 7.8 % Invalid Interpretation Code 0-10 [facility] Work Phone: Monocytes/100 WBC (Bld) 7.8 % 0-10 [facility] Work Phone: neutrophil count, blood 3.4 X10 3/UL Invalid Interpretation Code 2.0-7.7 [facility] Work Phone: Neutrophils #/vol (Bld) 3.4 X10 3/UL 2.0-7.7 [facility] Work Phone: Neutrophils/100 leukocytes 62.2 % Invalid Interpretation Code 47-70 [facility] Work Phone: Neutrophils/100 WBC (Bld) 62.2 % 47-70 [facility] Work Phone: Platelet mean volume Entitic volume (Bld) 9.4 fL 6.2-12.0 [facility] Work Phone: Platelets 216 10*3/mm3 Invalid Interpretation Code 150-450 [facility] Work Phone: Platelets #/vol (Bld) 216 10*3/mm3 150-450 [facility] Work Phone: PMV by Zafar 9.4 fL Invalid Interpretation Code 6.2-12.0 [facility] Work Phone: RBC #/vol (Bld) 4.59 10*6/uL Low 4.6-6.2 [facility] Work Phone: RDW-CA 14.2 % Invalid Interpretation Code 11.6-14.6 [facility] Work Phone: red blood cell distribution width, size density 44.2 fL High 35.1-43.9 [facility] Work Phone: WBC #/vol (Bld) 5.5 10*3/uL 4.4-11.0 [facility] Work Phone: WBC (Leukocytes) 5.5 10*3/uL Invalid Interpretation Code 4.4-11.0 [facility] Work Phone: Office Visit: Follow upon Dietary management education, guidance, and counseling (procedure) yes Invalid Interpretation Code [facility] Work Phone: Documentation of current medications (procedure) Done Invalid Interpretation Code [facility] Work Phone: Fall risk assessment No [facility] Work Phone: Tobacco smoking status NHIS Never [facility] Work Phone: Tobacco smoking status NHIS Never smoker [facility] Work Phone: Tobacco use [facility] Never smoker Invalid Interpretation Code [facility] Work Phone: Office Visit: Follow up [facility] 07-05-2016 Dietary management education, guidance, and counseling (procedure) yes Invalid Interpretation Code [facility] Work Phone: Documentation of current medications (procedure) Done Invalid Interpretation Code [facility] Work Phone: Fall risk assessment No Invalid Interpretation Code [facility] Work Phone: Tobacco smoking status NHIS Never Invalid Interpretation Code [facility] Work Phone: Tobacco use CP Never smoker Invalid Interpretation Code [facility] Work Phone: Lab Report: HLA B27on 2016 HLA-B27 Negative . [facility] Work Phone: Office Visit: odd presention of fever, colitis/w/S.aureus bacteremiaon 06-27-2016 Documentation of current medications (procedure) Done Invalid Interpretation Code [facility] Work Phone: Tobacco smoking status NHIS Never Invalid Interpretation Code [facility] Work Phone: Tobacco use [facility] Never smoker Invalid Interpretation Code [facility] Work Phone: Microbiology: Culture, Blood (WB)on 06-22-2016 Bacteria culture BCNo growth in 5 days. [facility] Work Phone: Replaced Document: (P) GABE w / Reflex Mult Confirmon 06-21-2016 GABE Titer Negative Invalid Interpretation Code Negative [facility] Work Phone: Nuclear Ab IA Qn (S) Negative Negative [facility] Work Phone: Microbiology: BC GPC IDon BC GPC ID . [facility] Work Phone: GE use only - for [employer] import when terms are not otherwise specified . Invalid Interpretation Code [facility] Work Phone: Vital Signs Date Time Vital Sign Value Performing Clinician Rahel knott 12-19-2021 16:12-0400 Body height 180 cm Kristen Galindo Other Phone: [facility] 12-19-2021 16:12-0400 Body temperature 97.52 [degF] Kristen Galindo Other Phone: [facility] 12-19-2021 16:12-0400 Diastolic blood pressure 81 mm[Hg] Kristen Galindo Other Phone: [facility] 12-19-2021 16:12-0400 Heart rate 87 /min Kristen Galindo Other Phone: [facility] 12-19-2021 16:12-0400 SaO2% (BldA) [Mass fraction] 98 % Kristen Galindo Other Phone: [facility] 12-19-2021 16:12-0400 Systolic blood pressure 133 mm[Hg] Kristen Galindo Other Phone: [facility] 07-31-2016 11:25-0400 BMI (Body Mass Index) 30.04 kg/m2 Catrachita Signs MD [facility] Work Phone: 07-31-2016 11:25-0400 Body Temperature 98.2 [degF] Catrachita Signs MD [facility] Work Phone: 07-31-2016 11:25-0400 BP Diastolic 74 mm[Hg] Catrachita Signs MD [facility] Work Phone: 07-31-2016 11:25-0400 BP Systolic 137 mm[Hg] Catrachita Signs MD [facility] Work Phone: 07-31-2016 11:25-0400 Height 180.34 cm Catrachita Signs MD [facility] Work Phone: 07-31-2016 11:25-0400 Pulse (Heart Rate) 99 /min Catrachita Signs MD [facility] Work Phone: 07-31-2016 11:25-0400 Pulse Oximetry 98 % Catrachita Signs MD [facility] Work Phone: 07-31-2016 11:25-0400 Respiratory Rate 18 /min Catrachita Signs MD [facility] Work Phone: 07-31-2016 11:25-0400 Weight 97.71 kg Catrachita Signs MD [facility] Work Phone: 07-17-2016 13:16-0400 BMI (Body Mass Index) 29.15 kg/m2 Saima Claire RN RN [facility] Work Phone: 07-17-2016 13:16-0400 Body Temperature 98.6 [degF] Saima Claire RN RN [facility] Work Phone: 07-17-2016 13:16-0400 Body weight 94.8 kg Saima Claire RN RN [facility] Work Phone: 07-17-2016 13:16-0400 BP Diastolic 92 mm[Hg] Saima Claire RN RN [facility] Work Phone: 07-17-2016 13:16-0400 BP Systolic 160 mm[Hg] Saima Claire RN RN [facility] [facility] Work Phone: 07-17-2016 13:16-0400 BSA (Body Surface Area) 2.15 m2 Saima Claire RN RN [facility] Work Phone: 07-17-2016 13:16-0400 Height 180.34 cm Saima Claire RN RN [facility] Work Phone: 07-17-2016 13:16-0400 Pulse (Heart Rate) 80 /min Saima Claire RN RN [facility] Work Phone: 07-17-2016 13:16-0400 Pulse Oximetry 99 % Saima Claire RN RN [facility] Work Phone: 07-17-2016 13:16-0400 Respiratory Rate 16 /min Saima Claire RN RN [facility] Work Phone: 07-17-2016 13:16-0400 Weight 94.8 kg Saima Claire RN RN [facility] Work Phone: 07-05-2016 10:53-0400 BMI (Body Mass Index) 29.43 kg/m2 [facility] Work Phone: 07-05-2016 10:53-0400 Body Temperature 98.2 [degF] [facility] Work Phone: 07-05-2016 10:53-0400 BP Diastolic 85 mm[Hg] Mary Carmen Marquez LPN [facility] Work Phone: 07-05-2016 10:53-0400 BP Systolic 170 mm[Hg] Mary Carmenandrew Marquez LPN [facility] Work Phone: 07-05-2016 10:53-0400 BSA (Body Surface Area) 2.16 m2 Mary Carmen Marquez LPN [facility] Work Phone: 07-05-2016 10:53-0400 Height 180.34 cm Mary Carmen Marquez LPN [facility] Work Phone: 07-05-2016 10:53-0400 Pulse (Heart Rate) 80 /min Mary Carmen Marquez [facility] Work Phone: 07-05-2016 10:53-0400 Pulse Oximetry 97 % Mary Carmen Marquez LPN [facility] Work Phone: 07-05-2016 10:53-0400 Respiratory Rate 16 /min Mary Carmen Jimmy CARDENASJudith [facility] Work Phone: 07-05-2016 10:53-0400 Weight 95.71 kg Mary Carmen Jimmy [facility] Work Phone: 06-27-2016 12:57-0400 BMI (Body Mass Index) 30.37 kg/m2 Mary Carmen Marquez LPN [facility] Work Phone: 06-27-2016 12:57-0400 Body Temperature 96.6 [degF] Mary Carmen Marquez [facility]PN [facility] Work Phone: 06-27-2016 12:57-0400 BP Diastolic 77 mm[Hg] Mary Carmen Marquez LPN [facility] Work Phone: 06-27-2016 12:57-0400 BP Systolic 153 mm[Hg] Mary Carmen Marquez LPN [facility] Work Phone: 06-27-2016 12:57-0400 Height 180.34 cm [facility] Work Phone: 06-27-2016 12:57-0400 Pulse (Heart Rate) 84 /min [facility] Work Phone: 06-27-2016 12:57-0400 Pulse Oximetry 98 % Mary Carmen Marquez LPN [facility] Work Phone: 06-27-2016 12:57-0400 Respiratory Rate 20 /min [facility] Work Phone: 06-27-2016 12:57-0400 Weight 98.79 kg Mary Carmen Marquez LPN [facility] Work Phone: Encounters Encounter Date Encounter Type Care Provider Facility Start: 05-05-2024 Encounter for genera l adult medical examination without abnormal findings Kristen Galindo [facility] Start: 04-23-2024 End: 04-23-[address] Kristen Galindo MD Work Phone: [facility] Work Phone: Start: 04-23-2024 End: 04-23-[address] Kristen Galindo MD -Laboratory, Specimen Work Phone: Start: 04-23-2024 End: 04-23-2024 ambulatory Kristen Galindo Facility:[facility] Start: 10-22-2023 End: 10-22-2023 ambulatory Kristen Galindo Facility:[facility] Start: 04-10-2023 End: 04-10-2023 [facility] Start: 12-23-2022 End: 12-23-2022 ambulatory [facility] Work Phone: Start: 12-23-2022 End: 12-23-2022 Patient encounter procedure [facility] Work Phone: Start: 09-28-2022 End: 09-28-2022 ambulatory [facility] Work Phone: Start: 09-28-2022 End: 09-28-2022 Patient encounter procedure [facility] Start: 02-22-2022 End: 02-22-2022 ambulatory [facility] Work Phone: Start: 02-22-2022 End: 02-22-2022 Patient encounter procedure [facility] Start: 12-19-2021 End: 12-19-2021 Emergency department patient visit Adalgisa Spencer [facility] Procedures Date Procedure Procedure Detail Performing Clinician Start: 04-10-2023 POCT BD VERITOR TRIPLEX AG KRISTEN GALINDO Start: 07-31-2016 End: 07-31-2016 *CBC with Differential Catrachita Tejeda MD Start: 07-31-2016 End: 07-31-2016 *CMP Complete Metabolic Panel Catrachita Tejeda MD Start: 07-31-2016 End: 07-31-2016 Erythrocyte sedimentation rate Catrachita Tejeda MD Start: 07-17-2016 End: 07-17-2016 Dietary management education, guidance, and counseling Saima Claire RN RN Start: 07-17-2016 End: 07-17-2016 Documentation of current medications Saima Claire RN RN Start: 07-17-2016 End: 08-20-2016 Colonoscopy flx dx w/collj spec when pfrmd Loc Emerson MD Work Phone: Start: 07-05-2016 End: 08-20-2016 Follow Up Appt 2 weeks Loc [email or web address] MD Work Phone: Plan of Treatment Date Care Activity Detail Author Start: 08-18-2016 End: 08-18-2016 Appointment Appointment [facility] Work Phone: Start: 08-18-2016 End: 08-18-2016 Appointment Appointment [facility] Work Phone: Start: 07-31-2016 End: 07-31-2016 Appointment Appointment [facility] Work Phone: Start: 07-31-2016 End: 07-31-2016 Appointment Appointment [email or web address] Work Phone: Start: 07-31-2016 End: 07-31-2016 *CBC with Differential *CBC with Differential [facility] Work Phone: Start: 07-31-2016 End: 07-31-2016 *CMP Complete Metabolic Panel *CMP Complete Metabolic Panel [facility] Work Phone: Start: 07-31-2016 End: 07-31-2016 Erythrocyte sedimentation rate *Sedimentation Rate (ESR) [facility] Work Phone: Start: 07-17-2016 End: 07-17-2016 Appointment Appointment [facility] Work Phone: Start: 07-17-2016 End: 08-20-2016 Diagnostic colonoscopy Colonoscopy [email or web address] Work Phone: Start: 07-05-2016 End: 07-05-2016 Appointment Appointment [facility] Work Phone: Start: 07-05-2016 End: 08-20-2016 Follow Up Appt 2 weeks Follow Up Appt 2 weeks [facility] Work Phone: Start: 06-27-2016 End: 06-27-2016 Appointment Appointment [facility] Work Phone: Patient Education [facility] Work Phone: Payers Date Payer Category Payer Self-pay [id number] 2019 Unknown [id number] 2015 Private Health Insurance [employer] [id number] 1955 Unknown [id number] 1955 Unknown [id number] Unknown ANTHEM\ANTHEM HMP Medicare [id number] Private Health Insurance BLADIMIR [id number] Unknown [id number] Unknown [id number] Social History Date Type Detail Facility [facility] Start: 08-11-2016 End: 08-11-2016 Tobacco smoking consumption unknown [facility] Start: 06-15-2016 None [facility] Start: 06-15-2016 Spouse/ Signif icant Other [facility] Start: 1955 Sex Assigned At Male W [facility] Start: 08-11-2016 Tobacco smoking status NHIS Never smoked tobacco (finding) [facility] Start: 05-05-2024 Sex Male (finding) [facility] Evaluation note Note Date & Type Note Facility Evaluation note No assessment information availa ble [facility] Work Phone: Reason for referral (narrative) Note Date & Type Note Facility Reason for referral (narrative) No reason for referral information available [facility] Work Phone: Summary Purpose Family History No Family History Records Found Relationship Condition Age at Onset Recorded Date/T amelie Unknown Family History?Heart Disease Unknown June 15, 2016 6:18am Family History?Heart Disease Unknown June 15, 2016 6:18am Relationship Condition Age at Onset Recorded Date/T amelie Unknown Family History?Heart Disease Unknown June 15, 2016 7:18am Family History?Heart Disease Unknown June 15, 2016 7:18am Advance Directives No Advanced Directives Records Found Advance Directive Response Recorded Date/ Time Living Will No August 11, 2016 10:26am Power of Barrelhead Inspector No August 11 7 10:26am Advance Directive Response Recorded Date/ Time Living Will No August 11, 2016 11:26am Power of Barrelhead Inspector No August 11 7 11:26am Chief Complaint and Reason for Visit Chief Complaint EORDER Additional Source Comments <item> Privacy Markings (unrecogniz ed section and content) Section Author: Ally Jules PROHIBITION ON REDISCLOSURE OF CONFIDENTIAL INFORMATION This notice accompanies a disclosure of information concerning a client made to you with the consent of such client. (unrecognized sect ion and content) No Status Records FoundNo Status Records FoundNo Status Records Found INFORMATION SOURCE (unrecogn ized section and content) DATE CREATED AUTHOR 12/25/2021 [facility] DATE CREATED AUTHOR AUTHOR'S ORGANIZ ATION 04/11/2023 [facility] DATE CREATED AUTHOR AUTHOR'S ORGANIZ ATION 09/24/2024 [facility] Goals (unrecognized section and content) Goals may be documented in a n alternate sectionGoals may be documented in an alternate sectionGoals may be documented in an alternate sectionGoals may be documented in an alternate section Care Teams (unrecognized sec tion and content) Team Status: Active Member Role Status Dates Dr. Jeremiah Galindo MD Family Provider Active Dr. Jeremiah Galindo MD Primary Care Provider Activ e Team Status: Inactive Member Role Status Dates Dr. Jeremiah Galindo MD Primary Care Provider, Atte nding Provider Active Team Status: Inactive Member Role Status Dates Dr. Jeremiah Galindo MD Primary Care Provider, Attending Provider, Referring Provider Active Team Status: Active Member Role Status Dates Dr. Kristen Galnido MD Family Provider Active Dr. Kristen Galindo MD Primary Care Provider Acti ve Team Status: Inactive Member Role Status Dates Dr. Kristen Galindo MD Primary Care Provider Acti ve Start: April 23, 2024 End: April 23, 2024 Dr. Kristen Galindo MD Attending Provider Active Start: April 23, 2024 End: April 23, 2024 Dr. Kristen Galindo MD Referring Provider Active Start: April 23, 2024 End: April 23, 2024 FOR RECORDS PERTAINING TO PATIENTS WHO ARE OR HAVE BEEN ENROLLED IN A CHEMICAL DEPENDENCY/SUBSTANCEABUSE PROGRAM, SOME INFORMATION MAY BE OMITTED. This clinical summary was aggregated from multiple sources. Caution should be exercised in using it in the provision of clinical care. This summary normalizes information from multiple sources, and as a consequence, information in this document may materially change the coding, format and clinical context of patient data. In addition, data may be omitted in some cases. CLINICAL DECISIONS SHOULD BE BASED ON THE PRIMARY CLINICAL RECORDS. [employer] [facility]. provides no warranty or guarantee of the accuracy or completeness of information in this document.
[2025-01-21 13:15] LABS: AST(SGOT) 24 U/L (<=37); Alanine Aminotransfer ALT/SGPT 25 U/L (<=46); Albumin, Serum 4.3 g/dL (3.4-4.8); Alkaline Phosphatase 70 U/L (40-129); Anion Gap 12 (5-15); BUN 14 mg/dL (4-19); BUN/Creat Ratio 15.9 RATIO (10-20); Calcium,Total 9.4 mg/dL (7.6-11.0); Carbon Dioxide 24.5 mmol/L (21.0-32.0); Chloride 103 mmol/L (98-108); Cholesterol 162 mg/dL (<=200); Globulin 2.6 g/dL (2.2-4.2); Glucose 135 mg/dL (70-99); Low Density Lipoprotein Calc. 88 mg/dL; PSA,Total - Annual Screen 1.42 ng/mL (0.02-4.00); Potassium 4.2 mmol/L (3.3-5.1); Triglycerides 39 mg/dL; Very Low Density Lipoprotein 8 mg/dL (5-40); cholesterol:hdl ratio screen 2.49
== END | disposition home or self-care (01) ==
LOC: MFPLAB 08:14
PROVIDERS: PCP Family Medicine; Visit Provider Family Medicine
DX: Z12.5 Encounter for screening for malignant neoplasm of prostate (principal); E11.65 Type 2 diabetes mellitus with hyperglycemia
CPT/HCPCS: 36415; 80053; 80061; 84153; 84403; 84443; G0103